=== PATIENT | male | born 1965 ===

== ENCOUNTER 2020-07-19 12:35 | Inpatient (IN) | payer OTHER ==
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
--- NOTE | 2020-07-19 13:51 | CT ---
EXAMINATION TYPE: CT chest wo con DATE OF EXAM: 07/19/2020 COMPARISON: None HISTORY: Pain CT DLP: 613 mGycm. Automated Exposure Control for Dose Reduction was Utilized. TECHNIQUE: CT scan of the thorax is performed without IV contrast. FINDINGS: There is subcutaneous emphysema along the anterior chest wall on the left. There is a fract ure of the left first, and second ribs anteriorly, left third rib posteriorly, left fourth rib stripper opaquer iorly, left fifth rib laterally. A small focal area of adjacent consolidation likely represents a pul monary contusion anteriorly. Suspect a tiny less than 5% apical pneumothorax. There is bilateral subsegmental consolidation. Apical paraseptal emphysematous changes are noted. Aor ta of normal caliber. Mild atherosclerotic change aorta. Heart mildly prominent. Trace pericardial fl uid. Left thickening of the adrenal gland is nonspecific. Hypertrophic and degenerative changes of th e spine. Hepatic steatosis is suspected. IMPRESSION: 1. Numerous rib fractures extending from the left first through the left fifth ribs with suspected ad jacent pulmonary small contusion. A less than 5% left apical pneumothorax suspected. 2. COPD with bilateral infiltrate 3. Left adrenal gland thickening with an 8 mm too small to characterize nodule which is indeterminate .
[2020-07-19] MEDS ORDERED: NALOXONE 0.4 MG/ML 1 ML VIAL IV PRN (13:59)
[2020-07-19 14:41] LABS: Basophils # (A) 0.1 k/uL (0-0.2); Basophils % (A) 1 %; Eosinophils # (A) 0.2 k/uL (0-0.7); Eosinophils % (A) 2 %; HCT 40.7 % (39.0-53.0); HGB 13.8 gm/dL (13.0-17.5); Lymphocytes # (A) 0.8 k/uL (1.0-4.8); Lymphocytes % (A) 8 %; MCH 30.8 pg (25.0-35.0); MCHC 33.8 g/dL (31.0-37.0); MCV 90.9 fL (80.0-100.0); Mean Platelet Volume 7.8; Monocytes # (A) 0.6 k/uL (0-1.0); Monocytes % (A) 6 %; Neutrophils # (A) 8.1 k/uL (1.3-7.7); Neutrophils % (A) 83 %; Platelet Count 338 k/uL (150-450); RBC 4.48 m/uL (4.30-5.90); RDW 14.1 % (11.5-15.5); WBC 9.8 k/uL (3.8-10.6)
[2020-07-19 14:53] LABS: African American GFR (CKD) >90 (>60 ml/min/1.73 sqM); Anion Gap 7 mmol/L; Blood Urea Nitrogen 14 mg/dL (9-20); Calcium 9.8 mg/dL (8.4-10.2); Carbon Dioxide 26 mmol/L (22-30); Chloride 104 mmol/L (98-107); Glucose 132 mg/dL (74-99); Non-African American GFR(CKD) >90 (>60 ml/min/1.73 sqM); Potassium 4.7 mmol/L (3.5-5.1); Sodium 137 mmol/L (137-145)
[2020-07-19 14:57] LABS: INR 0.9 (<1.2); Prothrombin Time 9.8 sec (9.0-12.0)
[2020-07-19 14:59] LABS: Partial Thromboplastin Time 18.3 sec (22.0-30.0)
[2020-07-19] MEDS: HYDROmorphone 0.5 MG/0.5 ML SYRINGE IVP PRN ×2 (18:13→22:11)
[2020-07-19] MEDS: SODIUM CHLORIDE 0.9% 1,000 ML IV SCH (18:14)
--- NOTE | 2020-07-19 18:18 | XR ---
EXAMINATION TYPE: XR chest 1V portable DATE OF EXAM: 07/19/2020 COMPARISON: NONE HISTORY: Rib fractures TECHNIQUE: Single view FINDINGS: There is some mild infiltrate and atelectasis at the lung bases. Heart is enlarged. There i s no heart failure. There is some pleural thickening on the left lateral chest wall with rib fracture s. No pneumothorax. IMPRESSION: Pleural thickening and atelectasis not significantly different than the CT scan 5 hours a go. No pneumothorax.
[2020-07-20] MEDS: HYDROmorphone 0.5 MG/0.5 ML SYRINGE IVP PRN ×2 (01:37→08:57)
[2020-07-20] MEDS: SODIUM CHLORIDE 0.9% 1,000 ML IV SCH ×4 (06:04→20:20)
[2020-07-20] MEDS: amLODIPine 5 MG TAB PO SCH (08:57)
[2020-07-20] MEDS: ASPIRIN 81 MG PO SCH (08:57)
[2020-07-20 09:32] VITALS: RESP 18
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
[2020-07-20] MEDS: PANTOPRAZOLE 40 MG TABLET PO SCH (15:48)
[2020-07-20] MEDS: HYDROcodone/APAP 5-325MG 1 EACH TAB PO PRN ×2 (15:48→20:16)
[2020-07-20] MEDS: HEPARIN SODIUM,PORCINE/PF 5,000 UNIT/0.5 ML SYRINGE SQ SCH ×2 (20:17→20:19)
[2020-07-21] MEDS: HYDROmorphone 0.5 MG/0.5 ML SYRINGE IVP PRN ×4 (00:18→22:01)
[2020-07-21] MEDS: SODIUM CHLORIDE 0.9% 1,000 ML IV SCH ×2 (04:51→19:18)
[2020-07-21] MEDS: PANTOPRAZOLE 40 MG TABLET PO SCH (06:27)
[2020-07-21] MEDS: HYDROcodone/APAP 5-325MG 1 EACH TAB PO PRN (08:16)
[2020-07-21] MEDS: amLODIPine 5 MG TAB PO SCH (08:17)
[2020-07-21] MEDS: HEPARIN SODIUM,PORCINE/PF 5,000 UNIT/0.5 ML SYRINGE SQ SCH ×2 (08:17→19:46)
[2020-07-21] MEDS: ASPIRIN 81 MG PO SCH (08:17)
--- NOTE | 2020-07-21 10:10 | P.PN ---
Subjective Progress Note Date: 07/21/20 Principal diagnosis: Chest pain, and shortness of breath 55-year-old male, who presents to the emergency department, on 07/19/2020. The patient came to the ER, because he apparently injured himself at home. He apparently injured his left chest area. He fell while at home, tumbling over his walker. He landed on the left side of his chest, uses left arm to break the fall. He denied any head trauma. The patient was not on any blood thinners. The patient was found to have a pulmonary contusion, a small pneumothorax, and multiple rib fractures on the left side, including rib 1, 2, 3, 4 and 5. When I went into the room to see the patient, he was on a nonrebreather. We took the nonrebreather off, and we checked his pulse oximetry on room air, and he was 92%. He was also nothing by mouth for some unclear reason. I told the nurses that he could be fed, and also to place him on nasal O2 at a couple liters. We also ordered an incentive spirometer for him. Lab data included a normal CBC, normal PT INR and PTT, and normal electrolyte profile. Testing for coronavirus was negative. A chest x-ray shows some pleural thickening and atelectasis at the lung bases. Computed tomography scan of the chest showed numerous rib fractures including rib 1, rib 2, rib 3, rib 4, and rib 5 on the left. There is a small pulmonary contusion and a less than 5% left apical pneumothorax as well. On 07/21/2020 patient seen in follow-up on selective care unit. He is awake and alert, in no acute distress, he is resting comfortably in bed, currently on 3 L of oxygen, off axis 95-97%, no new chest x-ray, no worsening dyspnea, his incentive spirometer effort is about 800. He remains on IV fluids at 139 per hour, he is on GI and DVT prophylaxis, he is on [place] and Dilaudid for breakthrough pain. He is tolerating oral diet, no abdominal pain. No new labs today. Objective - Vital Signs Vital signs: Vital Signs Temp 98.5 F 07/21/20 08:00 Pulse 101 H 07/21/20 08:00 Resp 18 07/21/20 08:00 BP 146/50 07/21/20 08:00 Pulse Ox 95 07/21/20 08:00 Intake & Output 07/20/20 07/21/20 07/21/20 18:59 06:59 18:59 Intake Total 340 240 Output Total 1000 Balance 340 -760 Weight 123 kg Intake: Oral 340 240 Output: Urine 1000 Other: Voiding Method Urinal # Voids 2 - Exam GENERAL EXAM: Alert, very pleasant, 55-year-old white male, on 3 L of oxygen and the pulse ox of 95-97% comfortable in no apparent distress. HEAD: Normocephalic/atraumatic. EYES: Normal reaction of pupils, equal size. Conjunctiva pink, sclera white. NOSE: Clear with pink turbinates. THROAT: No erythema or exudates. NECK: No masses, no JVD, no thyroid enlargement, no adenopathy. CHEST: No chest wall deformity. Symmetrical expansion. LUNGS: Equal air entry with no crackles, wheeze, rhonchi or dullness. CVS: Regular rate and rhythm, normal S1 and S2, no gallops, no murmurs, no rubs ABDOMEN: Soft, nontender. No hepatosplenomegaly, normal bowel sounds, no guarding or rigidity. EXTREMITIES: No clubbing, no edema, no cyanosis, 2+ pulses and upper and lower extremities. MUSCULOSKELETAL: Muscle strength and tone normal. SPINE: No scoliosis or deformity SKIN: No rashes CENTRAL NERVOUS SYSTEM: Alert and oriented -3. No focal deficits, tone is normal in all 4 extremities. PSYCHIATRIC: Alert and oriented -3. Appropriate affect. Intact judgment and insight. - Labs CBC & Chem 7: 07/19/20 14:21 07/19/20 14:21 Assessment and Plan Plan: Assessment: #1. Acute hypoxic respiratory failure related to small pneumothorax on the left and pulmonary contusion from a fall and trauma to the left chest #2. Multiple left rib fractures (1 through 5) #3. History of hypertension Plan: Continue encouraging deep breathing and coughing Vital signs have been stable Weaning FiO2 From pulmonary perspective he could be considered for discharge home today Decrease IV fluids to KVO Obtain home oxygen assessment Patient may require home oxygen to go home on Outpatient follow-up with Dr. Davis in the office in 7-10 days I performed a history & physical examination of the patient and discussed their management with my nurse practitioner, Dayna Sarah. I reviewed the nurse practitioner's note and agree with the documented findings and plan of care. Lung sounds are positive for diminished breath sounds. The findings and the impression was discussed with the patient. I attest to the documentation by the nurse practitioner. Time with Patient: Less than 30
[2020-07-21] MEDS: HYDROcodone/APAP 7.5-325MG 1 EACH TAB PO PRN (13:14)
[2020-07-21] MEDS ORDERED: IBUPROFEN 600 MG TAB PO PRN (14:01)
--- NOTE | 2020-07-21 14:44 | XR ---
EXAMINATION TYPE: XR tibia fibula LT DATE OF EXAM: 07/21/2020 COMPARISON: NONE HISTORY: Pain TECHNIQUE: Two views are submitted. FINDINGS: The osseous structures are intact. Postsurgical changes and evidence of remote trauma are noted. Diff use severe osteopenia involving the distal femur and proximal tibia. Resection portion of the distal fibula with displaced fracture fragment noted. Marked deformity of the distal tibia with postsurgical change. Cannot exclude osteomyelitis. Diffuse osteopenia involving the visualized osseous structures of the foot. Soft tissue edema noted. IMPRESSION: 1. Evidence of remote trauma and postsurgical change with soft tissue edema noted. There is diffuse o steopenia. 2. There is fragmentation of the distal tibia with areas of lucency which could be postsurgical. Talita ot exclude infectious etiology.
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
[2020-07-22] MEDS: HYDROmorphone 0.5 MG/0.5 ML SYRINGE IVP PRN ×2 (03:39→07:46)
[2020-07-22] MEDS: PANTOPRAZOLE 40 MG TABLET PO SCH (06:35)
[2020-07-22] MEDS: SODIUM CHLORIDE 0.9% 1,000 ML IV SCH ×2 (06:35→07:46)
[2020-07-22] MEDS: amLODIPine 5 MG TAB PO SCH (07:45)
[2020-07-22] MEDS: HEPARIN SODIUM,PORCINE/PF 5,000 UNIT/0.5 ML SYRINGE SQ SCH (07:45)
[2020-07-22] MEDS: ASPIRIN 81 MG PO SCH (07:45)
[2020-07-22 09:19] LABS: Basophils % (A) 1 %; Eosinophils # (A) 0.3 k/uL (0-0.7); Eosinophils % (A) 5 %; HCT 39.3 % (39.0-53.0); HGB 12.5 gm/dL (13.0-17.5); Lymphocytes # (A) 1.3 k/uL (1.0-4.8); Lymphocytes % (A) 19 %; MCH 29.8 pg (25.0-35.0); MCHC 31.8 g/dL (31.0-37.0); MCV 93.8 fL (80.0-100.0); Mean Platelet Volume 6.8; Monocytes # (A) 0.6 k/uL (0-1.0); Monocytes % (A) 9 %; Neutrophils # (A) 4.5 k/uL (1.3-7.7); Neutrophils % (A) 65 %; Platelet Count 292 k/uL (150-450); RBC 4.19 m/uL (4.30-5.90); RDW 14.2 % (11.5-15.5); WBC 6.8 k/uL (3.8-10.6)
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
[2020-07-22] MEDS: HYDROcodone/APAP 7.5-325MG 1 EACH TAB PO PRN (12:37)
[2020-07-22 12:44] VITALS: BP 124/76; PULSE 87; TEMP 97.9
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
== END 2020-07-22 15:28 | disposition home health service (06) | DRG 183 ==
LOC: EC 12:35 → 3SCARD 13:59
PROVIDERS: ADMIT Surgery; ATTEND Surgery
DX: S22.42XA Multiple fractures of ribs, left side, initial encounter for closed fracture (principal); J96.01 Acute respiratory failure with hypoxia; S27.0XXA Traumatic pneumothorax, initial encounter; S27.329A Contusion of lung, unspecified, initial encounter; W19.XXXA Unspecified fall, initial encounter; Y92.009 Unspecified place in unspecified non-institutional (private) residence as the place of occurrence of the external cause; Z79.82 Long term (current) use of aspirin; Z79.899 Other long term (current) drug therapy; Z87.891 Personal history of nicotine dependence; I10 Essential (primary) hypertension; J44.9 Chronic obstructive pulmonary disease, unspecified
CPT/HCPCS: 71045; 71250; 80048; 85025; 85610; 85730; 87635; 94760; 99285